=== PATIENT | female | born 1980 | race African-American/Black ===

== ENCOUNTER 2016-05-31 00:07 | Emergency (ER) | payer SELFPAY ==
[~2016-05-31] VITALS: Ht 165.1 cm; Wt 83.5 kg
[~2016-05-31 00:07] MED LIST: ONDA4TAB10 SL
[2016-05-31 00:21] VITALS: BP 133/69
--- NOTE | 2016-05-31 00:37 | PHYS DOC ---
Past Medical History Past Medical History: No Pertinent History Past Surgical History: Tubal ligation, Other Additional Past Surgical Histo: left hand surgery Alcohol Use: Occasionally Drug Use: Marijuana Adult General Chief Complaint Chief Complaint: SORE THROAT HPI HPI Patient is a 36 year old male presents emergency department stating that she is having a sore throat. She states that it started earlier tonight when she was getting ready to go to bed. She states she took some NyQuil or over-the- counter medication to help with the pain and discomfort. She states that she went to sleep and she could not sleep because the pain was so terrible in her throat. She is unsure if she's had any fevers. She denies cough or congestion. She does state that she's had sick contact although does not know what the others have had. Patient states that she feels as though her throat was swelling. Patient is able to talk in 4 word or more sentences with no shortness of breath noted. Patient is able to maintain her own saliva. Patient is also complaining of left ear pain and discomfort. Review of Systems Review of Systems Constitutional: Denies fever or chills [] Eyes: Denies change in visual acuity, redness, or eye pain [] HENT: Denies nasal congestion C/o sore throat and left ear pain and discomfort[] Respiratory: Denies cough or shortness of breath [] Cardiovascular: No additional information not addressed in HPI [] GI: Denies abdominal pain, nausea, vomiting, bloody stools or diarrhea [] : Denies dysuria or hematuria [] Musculoskeletal: Denies back pain or joint pain [] Integument: Denies rash or skin lesions [] Neurologic: Denies headache, focal weakness or sensory changes [] Current Medications Current Medications Current Medications Medications (Trade) Dose Ordered Sig/Arden Start Time Stop Time Status Last Admin Dose Admin Lidocaine HCl (Viscous Lidocaine) 15 ml 1X ONCE 05/31/16 00:45 05/31/16 00:46 UNV Allergies Allergies Allergies Coded Allergies Type Severity Reaction Last Updated Verified No Known Drug Allergies 01/18/16 No Physical Exam Physical Exam Constitutional: Well developed, well nourished, no acute distress, non-toxic appearance. [] HENT: Normocephalic, atraumatic, bilateral external ears normal, oropharynx moist, no oral exudates, nose normal. Bilateral tympanic membranes appear to be normal. Throat with postnasal drip noted that is clear to white in color. Erythematous was noted. Patient appears to have no tonsillar exudate as she does not have tonsils. Eyes: PERRLA, EOMI, conjunctiva normal, no discharge. [] Neck: Normal range of motion, no tenderness, supple, no stridor. [] Cardiovascular:Heart rate regular rhythm, no murmur [] Lungs & Thorax: Bilateral breath sounds clear to auscultation [] Skin: Warm, dry, no erythema, no rash. [] Back: No tenderness Extremities: No tenderness, no cyanosis, no clubbing, ROM intact, no edema. [] Neurologic: Alert and oriented X 3, normal motor function, normal sensory function, no focal deficits noted. [] Psychologic: Affect normal, judgement normal, mood normal. [] Current Patient Data Vital Signs Vital Signs Date Time Temp Pulse Resp B/P Pulse Ox O2 Delivery O2 Flow Rate FiO2 05/31/16 00:21 97.7 66 20 99 Room Air 97.7 EKG EKG [] Radiology/Procedures Radiology/Procedures [] Course & Med Decision Making Course & Med Decision Making Pertinent Labs and Imaging studies reviewed. (See chart for details) Patient's rapid strep was negative. Patient will be discharged home with recommendations to drink plenty of fluids cough drops and throat lozenges will help soothe the throat. She'll be provided with some viscous lidocaine here in the emergency department to help with the pain and discomfort. Patient was provided with rapid strep results. She'll be discharged home in stable condition recommended Tylenol and ibuprofen for pain and discomfort. We'll provide patient's with viscous lidocaine for home. Recommended patient follow- up with her primary care physician next 3-5 days. Since symptoms to return back to emergency department as been provided. [] Dragon Disclaimer Dragon Disclaimer This electronic medical record was generated, in whole or in part, using a voice recognition dictation system. Departure Departure Impression: Primary Impression: Pharyngitis Disposition: HOME, SELF-CARE Condition: STABLE Referrals: NO PCP (PCP) Patient Instructions: Viral and Bacterial Pharyngitis, [id number] Additional Instructions: Home to rest. Drink plenty of fluids Tylenol and ibuprofen for fever chills or generalized body aches and discomfort. Cough drops, throat lozenges, Cepacol throat sprays and warm salt water gargles may also help soothe the throat. Medication as prescribed. Follow-up with primary care physician in the next 3-5 days. Return back to emergency prior signs symptoms of become worse. Scripts Lidocaine Hcl (Lidocaine Hcl Viscous)20 Mg/1 Ml Solution5 Ml PO TID #100 ML Prov:AZALEA GROSS NP 05/31/16 AAZLEA GROSS NP May 31, 2016 00:37
[2016-05-31] MEDS ORDERED: LIDO20SO PO (00:55)
[2016-05-31] MEDS ORDERED: LIDOCAINE 2% VISCOUS 15 ML SOLUTION. SWSW ONE (01:30)
[2016-05-31 08:42] LABS: NEGATIVE OBC STREP NEG; POSITIVE OBC STREP POS
== END 2016-05-31 01:10 | disposition home or self-care (01) ==
LOC: ER 00:07
DX: J02.9 Acute pharyngitis, unspecified (principal); F12.10 Cannabis abuse, uncomplicated
CPT/HCPCS: 87070; 87880; 99283